=== PATIENT | male | born 1945 | race Two or more races ===

== ENCOUNTER 2017-02-18 02:14 | Inpatient (IN) | payer MEDICARE, OTHER ==
[~2017-02-18] VITALS: Ht 162.6 cm; Wt 51.3 kg
[2017-02-18] MEDS ORDERED: diphenhydrAMINE 50 MG/1 ML VIAL IM ONE (02:30)
[2017-02-18] MEDS ORDERED: LORAZEPAM 2 MG/1 ML VIAL IM ONE (02:30)
[2017-02-18] MEDS ORDERED: HALOPERIDOL LACTATE 5 MG/1 ML VIAL IM ONE (02:30)
[2017-02-18] MEDS ORDERED: diphenhydrAMINE 50 MG/1 ML VIAL ONE (02:40)
--- NOTE | 2017-02-18 02:40 | NUR ---
Patient BIB private ambulance for Medical Clearance and GPS admission. Patient presents with 5150 hold for GD. Per hold, patient has been screaming frequently at staff, refusing medications, responding to internal stimuli, and has been decompensating over the recent weeks. Patient arrives A/O x1, argumentative and agitated, yelling obsceneties at staff and ERMD. To room 3A, orders received, ERMD performed MSE.
[2017-02-18] MEDS ORDERED: HALOPERIDOL LACTATE 5 MG/1 ML VIAL ONE (02:41)
[2017-02-18] MEDS ORDERED: LORAZEPAM 2 MG/1 ML VIAL ONE (02:41)
[2017-02-18] MEDS ORDERED: MULT1TAB73 PO (02:50)
[2017-02-18] MEDS ORDERED: LORAZEPAM 1 MG TABLET PO (02:50)
[2017-02-18] MEDS ORDERED: ACET-2154 PO (02:50)
[2017-02-18] MEDS ORDERED: FUROSEMIDE 20 MG TABLET PO (02:50)
[2017-02-18] MEDS ORDERED: TEMA15CA5 PO (02:50)
[2017-02-18] MEDS ORDERED: TOUJEO SOLOSTAR 300 UNITS/ML INJ (02:50)
[2017-02-18] MEDS ORDERED: IBUP-1958 PO (02:50)
[2017-02-18] MEDS ORDERED: LOPE2TAB25 PO (02:50)
[2017-02-18] MEDS ORDERED: MAGN400T6 PO (02:50)
[2017-02-18] MEDS ORDERED: ACETAMINOPHEN COD (02:50)
[2017-02-18] MEDS ORDERED: DIPH50CA37 PO (02:50)
[2017-02-18] MEDS ORDERED: SODI1TAB3 PO (02:50)
[2017-02-18] MEDS ORDERED: GLUCAGON 1 MG IM (02:50)
[2017-02-18] MEDS ORDERED: RISP0.253 PO (02:55)
[2017-02-18] MEDS ORDERED: ACETAMINOPHEN COD PO (02:55)
[2017-02-18] MEDS ORDERED: ONDA4TAB5 PO (02:55)
[2017-02-18 03:07] LABS: CARBON DIOXIDE 29 mmol/L (21-32); CHLORIDE 104 mmol/L (98-107); CREATININE 1.2 mg/dL (0.6-1.3); GLUCOSE 138 mg/dL (74-106); POTASSIUM 3.8 mmol/L (3.5-5.1); UREA NITROGEN, BLOOD 33 mg/dL (7-18)
[2017-02-18 03:15] LABS: ALANINE AMINOTRANSFERASE 27 U/L (16-63); ALKALINE PHOSPHATASE 90 U/L (50-136); BILIRUBIN,DIRECT 0.3 mg/dL (0.0-0.2); BILIRUBIN,TOTAL 1.4 mg/dL (0.2-1.0); TOTAL PROTEIN, SERUM 7.8 g/dL (6.4-8.2)
[2017-02-18 03:16] LABS: BASOPHILS % (AUTO) 0.3 % (0.0-2.0); EOSINOPHILS # (AUTO) 0.3 K/uL (0.0-0.7); EOSINOPHILS % (AUTO) 2.2 % (0.0-7.0); HEMATOCRIT 34.5 % (40-50); HEMOGLOBIN 11.4 G/DL (14.0-18.0); LYMPHOCYTES # (AUTO) 2.3 K/UL (0.8-4.8); LYMPHOCYTES % (AUTO) 19.6 % (20.5-51.5); MEAN CORPUSCULAR HEMOGLOBIN 32.7 UUG (27.0-31.0); MEAN CORPUSCULAR HGB CONC 33 g/dL (32.0-37.0); MEAN CORPUSCULAR VOLUME 98.4 FL (82.0-92.0); MONOCYTES # (AUTO) 1.1 K/UL (0.1-1.30); MONOCYTES % (AUTO) 9.7 % (0.0-11.0); NEUTROPHILS # (AUTO) 7.9 K/UL (1.8-8.9); NEUTROPHILS % (AUTO) 68.2 % (38.5-71.5); PLATELET COUNT (AUTO) 217 K/UL (150-450); WHITE BLOOD COUNT (AUTO) 11.6 K/UL (4.0-11.2)
[2017-02-18 03:19] LABS: ETHANOL < 3 MG/DL (0-0)
[2017-02-18 03:20] LABS: THYROID STIMULATING HORMONE 0.614 mIU/mL (0.358-3.740)
[2017-02-18 03:22] LABS: ACETAMINOPHEN < 2.0 ug/mL (10-30)
[2017-02-18 03:45] VITALS: BP 119/64
[2017-02-18 03:47] LABS: ASPARTATE AMINOTRANSFERASE 47 U/L (15-37)
[2017-02-18 03:54] LABS: *BILIRUBIN,URIN NEGATIVE (NEGATIVE); *BLOOD, URINE Trace-intact (NEGATIVE); *COLOR,URINE YELLOW (YELLOW); *KETONES,URINE TRACE (NEGATIVE); *PROTEIN,URINE 1+ (NEGATIVE); LEUKOCYTE ESTERASE ,URINE NEGATIVE (NEGATIVE); NITRITE, URINE NEGATIVE (NEGATIVE); UGLUCOSE NEGATIVE (NEGATIVE)
--- NOTE | 2017-02-18 03:59 | NUR ---
Pt. admitted to GPS, under care of Dr. Wong Belongs List completed
[2017-02-18] MEDS ORDERED: MAG HYDROX/AL HYDROX/SIMETH 30 ML LIQUID UDC PO PRN (04:00)
[2017-02-18] MEDS ORDERED: MAGNESIUM HYDROXIDE 30 ML LIQUID UDC PO PRN (04:00)
[2017-02-18 04:03] LABS: *CLARITY,URINE HAZY (CLEAR)
[2017-02-18 04:05] LABS: BACTERIA,URINE FEW /HPF (NONE SEEN); MUCUS,URINE FEW /LPF (0-FEW); RBC,URINE 0-3 /HPF (0-3); SQUAMOUS EPITHELIAL CELL,UR FEW /HPF (NONE SEEN); YEAST,URINE MODERATE /HPF (NONE SEEN)
[2017-02-18 04:06] LABS: *AMPHETAMINE, URINE NEGATIVE (NEGATIVE); *BARBITURATE, URINE NEGATIVE (NEGATIVE); *CANNABINOID, URINE NEGATIVE (NEGATIVE); *COCCAINE, URINE POSITIVE (NEGATIVE); *OPIATE, URINE POSITIVE (NEGATIVE); *PHENCYCLIDINE SCREEN,URINE NEGATIVE (NEGATIVE)
--- NOTE | 2017-02-18 04:46 | NUR ---
received to care from the emergency room,a resident of [facility], who had been decompensating over the past few weeks, screaming frequently at nursing staff, refusing care and medicines, responding to internal stimuli, and went awol and stayed out all night, upon arrival, he had 2 crack pipes, a small baggie of white powder, and the urine drug screen, done in the ER, showed positive for cocaine and opiates. upon arrival in the ER, he was aggressive, yelling and hostile. he was given an IM injrection of haldol/ativan/benadryl. upon arrival on the unit, he was asleep. and was unable to provide any information. as of 445, he remains asleep. no distress noted. bed alarm armed, for safety. no distress noted. will continue to monitor closely.
[2017-02-18] MEDS: NICOTINE 21 MG/24HR PATCH TD SCH (09:28)
--- NOTE | 2017-02-18 13:24 | NUR ---
GPS/RN- CONTRABAND. received report from night baker , patient found with contraband, 2 crack pipes found and a small plastic bag with small amount of white powder substance, possible cocaine, patient tested positive for cocaine in Drug Screen. crack pipes turned into Nabeel jimenez at this time. Other contraband (white powder substance) turned into Pharmacy. Addendum: 02/18/17 at 1401 by TOMÁS DORSEY RN turned into Pharmacy, Darby, Pharmacist.
--- NOTE | 2017-02-18 14:00 | NUR ---
GPS/RN- Dr Brody Schwartz notified of labs and UA results. no new orders at this time. continue to monitor patient.
[2017-02-18 16:00] VITALS: BP 99/45
[2017-02-18 20:16] VITALS: BP 94/48
[2017-02-18] MEDS: BLOOD SUGAR DIAGNOSTIC 1 EACH STRIP VI SCH (21:14)
[2017-02-18] MEDS ORDERED: DEXTROSE 50% 50 ML DISP.SYRIN IV PRN (21:30)
[2017-02-18] MEDS ORDERED: ACETAMINOPHEN 325 MG TABLET PO SCH (21:30)
--- NOTE | 2017-02-18 22:00 | NUR ---
received to care, lying in bed, asleep. b/p was initially 94/48, hr 70. he was given some fluids, a sandwich, and was assisted to the bathroom. he remains occasionally labile, and verbally abusive, but easy to redirect. compliant with accucheck, and insulin coverage. as of 2199, his b/p is 102/61, hr 81. currently asleep. no distress noted. will continue to monitor closely.
[2017-02-18] MEDS ORDERED: INSULIN DETEMIR 300 UNIT/3 ML CARTRIDGE SQ ONE (22:04)
[2017-02-18] MEDS ORDERED: INSULIN REGULAR, HUMAN 300 UNIT/3 ML VIAL ONE (22:04)
[2017-02-18] MEDS: INSULIN DETEMIR 300 UNIT/3 ML CARTRIDGE SQ SCH (22:10)
[2017-02-18] MEDS: INSULIN REGULAR, HUMAN 300 UNIT/3 ML VIAL SQ PRN (22:17)
[2017-02-19] MEDS: BLOOD SUGAR DIAGNOSTIC 1 EACH STRIP VI SCH ×5 (06:44→20:08)
[2017-02-19] MEDS ORDERED: BLOOD SUGAR DIAGNOSTIC 1 EACH STRIP VI SCH (07:30)
[2017-02-19 08:20] VITALS: BP 97/50
[2017-02-19] MEDS: BENZTROPINE MESYLATE 0.5 MG TABLET PO SCH ×3 (08:40→16:16)
[2017-02-19] MEDS: MULTIVITAMINS,THERAPEUTIC TABLET PO SCH (08:40)
[2017-02-19] MEDS: NICOTINE 21 MG/24HR PATCH TD SCH (08:40)
[2017-02-19] MEDS: HALOPERIDOL 2 MG TABLET PO SCH ×3 (08:40→16:16)
--- NOTE | 2017-02-19 13:25 | NUR ---
DR PALMA HERE TO SEE PATIENT AND HE IS AWARE OF PATIENTS BLOOD SUGAR BEING LOW THIS AM AND BLOOD PRESSURE BEING LOW NO NEW ORDERS AT THIS TIME.
--- NOTE | 2017-02-19 15:44 | NUR ---
Initial discharge instructions: Pt resides at [facility] [[facility] [place],[address];[phone] ].Per pt's daughter,she would like the pt to return there upon discharge.SW will speak with pt,family,and MD regarding appropriate discharge plans.SW will form a safe and proper discharge.
[2017-02-19 16:00] VITALS: BP 94/52
--- NOTE | 2017-02-19 17:49 | NUR ---
WAS UP ON THE W/CHAIR AND TAKEN TO THE DAY ROOM BUT HE WAS THERE FOR FEW MINUTES AND HE CAME BACK TO HIS ROOM AND WENT BACK INTO BED.PATIENT GETS EASILY IRRITATED AND USES BAD LANGUAGE AND CURSES AT THE NURSES.
--- NOTE | 2017-02-19 18:02 | NUR ---
PATIENT SEEN AND EXAMINED BY DR FOX CHAPPELL AWARE OF PATIENTS BEHAVIOR WITH NEW ORDERS AND NOTED
[2017-02-19 20:10] VITALS: BP 98/56
[2017-02-19] MEDS: INSULIN DETEMIR 300 UNIT/3 ML CARTRIDGE SQ SCH (20:13)
[2017-02-20] MEDS: TEMAZEPAM 7.5 MG CAPSULE PO PRN ×2 (00:58→21:01)
[2017-02-20] MEDS: BLOOD SUGAR DIAGNOSTIC 1 EACH STRIP VI SCH ×4 (06:32→20:08)
[2017-02-20 07:30] VITALS: BP 117/50
[2017-02-20] MEDS: HALOPERIDOL 5 MG TABLET PO SCH ×3 (10:18→17:27)
[2017-02-20] MEDS: BENZTROPINE MESYLATE 1 MG TABLET PO SCH ×3 (10:19→17:27)
[2017-02-20] MEDS: MULTIVITAMINS,THERAPEUTIC TABLET PO SCH (10:19)
[2017-02-20] MEDS: NICOTINE 21 MG/24HR PATCH TD SCH (10:19)
[2017-02-20] MEDS: INSULIN REGULAR, HUMAN 300 UNIT/3 ML VIAL SQ PRN (14:14)
[2017-02-20 15:00] VITALS: BP 101/59
[2017-02-20] MEDS ORDERED: GUAIFENESIN/DEXTROMETHORPHAN 5 ML UDC PO PRN (18:30)
[2017-02-20] MEDS: INSULIN DETEMIR 300 UNIT/3 ML CARTRIDGE SQ SCH (20:11)
[2017-02-20] MEDS: GUAIFENESIN SUGAR FREE 100 MG/5 ML UDC PO PRN (20:52)
[2017-02-20 20:54] VITALS: BP 132/73
[2017-02-20] MEDS: ACETAMINOPHEN 325 MG TABLET PO PRN (22:25)
[2017-02-21] MEDS: GUAIFENESIN SUGAR FREE 100 MG/5 ML UDC PO PRN ×2 (02:52→17:14)
[2017-02-21] MEDS: BLOOD SUGAR DIAGNOSTIC 1 EACH STRIP VI SCH ×4 (06:40→20:23)
[2017-02-21 07:30] VITALS: BP 123/70
[2017-02-21] MEDS: MULTIVITAMINS,THERAPEUTIC TABLET PO SCH (08:58)
[2017-02-21] MEDS: NICOTINE 21 MG/24HR PATCH TD SCH (08:58)
[2017-02-21] MEDS: HALOPERIDOL 5 MG TABLET PO SCH ×3 (08:58→17:10)
[2017-02-21] MEDS: BENZTROPINE MESYLATE 1 MG TABLET PO SCH ×3 (08:58→17:07)
--- NOTE | 2017-02-21 09:17 | NUR ---
DONTEG PT BS 104. PT TOOK ALL AM MEDS, RESTING IN BED.
--- NOTE | 2017-02-21 11:12 | NUR ---
NSG BS 111, PT RESTING IN BED, NO DISTRESS.
--- NOTE | 2017-02-21 13:06 | NUR ---
GAVE PT MOM C/O STOMACH ACHE.
[2017-02-21] MEDS: INSULIN REGULAR, HUMAN 300 UNIT/3 ML VIAL SQ PRN (16:49)
[2017-02-21 17:10] VITALS: BP 106/57
[2017-02-21] MEDS: ACETAMINOPHEN 325 MG TABLET PO PRN (19:59)
[2017-02-21] MEDS: INSULIN DETEMIR 300 UNIT/3 ML CARTRIDGE SQ SCH (20:23)
[2017-02-21] MEDS: TEMAZEPAM 7.5 MG CAPSULE PO PRN (20:32)
[2017-02-21 22:48] VITALS: BP 110/73
[2017-02-22] MEDS: BLOOD SUGAR DIAGNOSTIC 1 EACH STRIP VI SCH ×4 (06:31→20:24)
[2017-02-22] MEDS: GUAIFENESIN SUGAR FREE 100 MG/5 ML UDC PO PRN ×3 (06:46→19:53)
[2017-02-22 07:30] VITALS: BP 114/67
[2017-02-22] MEDS: MULTIVITAMINS,THERAPEUTIC TABLET PO SCH (08:44)
[2017-02-22] MEDS: HALOPERIDOL 5 MG TABLET PO SCH ×3 (08:44→18:12)
[2017-02-22] MEDS: NICOTINE 21 MG/24HR PATCH TD SCH (08:44)
[2017-02-22] MEDS: BENZTROPINE MESYLATE 1 MG TABLET PO SCH ×3 (08:44→18:12)
[2017-02-22 09:41] LABS: IRON, SERUM 45 ug/dL (50-175)
[2017-02-22 16:00] VITALS: BP 103/55
[2017-02-22] MEDS: INSULIN DETEMIR 300 UNIT/3 ML CARTRIDGE SQ SCH (20:24)
[2017-02-22 20:25] VITALS: BP 106/72
[2017-02-22] MEDS: ACETAMINOPHEN 325 MG TABLET PO PRN (20:39)
[2017-02-22] MEDS: TEMAZEPAM 7.5 MG CAPSULE PO PRN (20:39)
[2017-02-23] MEDS: BLOOD SUGAR DIAGNOSTIC 1 EACH STRIP VI SCH ×4 (06:34→20:33)
[2017-02-23] MEDS: ACETAMINOPHEN 325 MG TABLET PO PRN ×2 (06:34→20:23)
[2017-02-23 07:30] VITALS: BP 111/50
[2017-02-23] MEDS: HALOPERIDOL 5 MG TABLET PO SCH ×3 (08:32→16:38)
[2017-02-23] MEDS: GUAIFENESIN SUGAR FREE 100 MG/5 ML UDC PO PRN (08:32)
[2017-02-23] MEDS: MULTIVITAMINS,THERAPEUTIC TABLET PO SCH (08:32)
[2017-02-23] MEDS: NICOTINE 21 MG/24HR PATCH TD SCH (08:32)
[2017-02-23] MEDS: BENZTROPINE MESYLATE 1 MG TABLET PO SCH ×3 (08:32→16:38)
[2017-02-23 16:09] VITALS: BP 115/66
[2017-02-23] MEDS: INSULIN DETEMIR 300 UNIT/3 ML CARTRIDGE SQ SCH (20:21)
[2017-02-23] MEDS: INSULIN REGULAR, HUMAN 300 UNIT/3 ML VIAL SQ PRN (20:22)
[2017-02-23 21:01] VITALS: BP 139/75
[2017-02-23] MEDS: TEMAZEPAM 7.5 MG CAPSULE PO PRN (21:24)
--- NOTE | 2017-02-23 22:00 | NUR ---
received to care, up in wheelchair, watching tv, pleasant upon approach. interacts minimally with peers. able to make his needs known, to staff. compliant with medications, including accu check, and insulin. PRN restoril was given at 2123, and, as of 2199, he remains awake, watching tv. no distress noted. will continue to monitor closely.
--- NOTE | 2017-02-23 23:30 | NUR ---
appears to be asleep. no distress noted.
[2017-02-24] MEDS: GUAIFENESIN SUGAR FREE 100 MG/5 ML UDC PO PRN ×3 (01:58→10:32)
[2017-02-24] MEDS: BLOOD SUGAR DIAGNOSTIC 1 EACH STRIP VI SCH ×4 (06:00→20:33)
[2017-02-24] MEDS: LORAZEPAM 1 MG TABLET PO PRN (06:16)
--- NOTE | 2017-02-24 06:16 | NUR ---
slept 5 hours, total. is now awake. is labile, and verbally abusive to staff assisting her. PRN ativan given at this time. will continue to monitor.
--- NOTE | 2017-02-24 06:53 | NUR ---
appears calmer, now. currently watching tv. no distress noted.
[2017-02-24 07:30] VITALS: BP 123/71
[2017-02-24] MEDS: DIVALPROEX 250 MG TABLET.DR PO SCH ×3 (09:16→16:45)
[2017-02-24] MEDS: BENZTROPINE MESYLATE 1 MG TABLET PO SCH ×3 (09:16→16:45)
[2017-02-24] MEDS: NICOTINE 21 MG/24HR PATCH TD SCH (09:17)
[2017-02-24] MEDS: HALOPERIDOL 5 MG TABLET PO SCH ×3 (09:17→16:45)
[2017-02-24] MEDS: MULTIVITAMINS,THERAPEUTIC TABLET PO SCH (09:17)
[2017-02-24 17:17] VITALS: BP 103/71
[2017-02-24 20:00] VITALS: BP 117/80
[2017-02-24] MEDS: INSULIN DETEMIR 300 UNIT/3 ML CARTRIDGE SQ SCH (20:37)
[2017-02-24] MEDS: INSULIN REGULAR, HUMAN 300 UNIT/3 ML VIAL SQ PRN (20:40)
[2017-02-24] MEDS: TEMAZEPAM 7.5 MG CAPSULE PO PRN (21:31)
--- NOTE | 2017-02-24 22:00 | NUR ---
received to care, up in wheelchair, pleasant upon approach. no agitation noted. interacts minimally with peers, but is able to make his needs known, to staff. compliant with medications, including accu check, and insulin. PRN restoril was given at 2129 for insomnia, and, as of 2199, he appears to be asleep. no distress noted. will continue to monitor closely.
[2017-02-25] MEDS: LORAZEPAM 1 MG TABLET PO PRN (00:29)
--- NOTE | 2017-02-25 00:29 | NUR ---
is now awake, and restless, pacing the hallway. PRN ativan was given, and he was directed back to bed. will continue to monitor.
[2017-02-25] MEDS: GUAIFENESIN SUGAR FREE 100 MG/5 ML UDC PO PRN ×2 (00:34→11:27)
--- NOTE | 2017-02-25 01:00 | NUR ---
appears to be asleep. no distress noted.
--- NOTE | 2017-02-25 06:00 | NUR ---
slept 5.0 hours, total. assisted with AM care, and shower. no distress noted.
[2017-02-25] MEDS: BLOOD SUGAR DIAGNOSTIC 1 EACH STRIP VI SCH ×4 (06:24→20:11)
[2017-02-25 08:00] VITALS: BP 118/58
[2017-02-25] MEDS: HALOPERIDOL 5 MG TABLET PO SCH ×3 (08:40→16:51)
[2017-02-25] MEDS: DIVALPROEX 250 MG TABLET.DR PO SCH ×3 (08:40→16:51)
[2017-02-25] MEDS: NICOTINE 21 MG/24HR PATCH TD SCH (08:40)
[2017-02-25] MEDS: BENZTROPINE MESYLATE 1 MG TABLET PO SCH ×3 (08:40→16:51)
[2017-02-25] MEDS: MULTIVITAMINS,THERAPEUTIC TABLET PO SCH (08:40)
[2017-02-25 16:00] VITALS: BP 96/60
[2017-02-25] MEDS: ACETAMINOPHEN 325 MG TABLET PO PRN (20:03)
[2017-02-25] MEDS: INSULIN DETEMIR 300 UNIT/3 ML CARTRIDGE SQ SCH (20:17)
[2017-02-25 20:26] VITALS: BP 127/66
[2017-02-25] MEDS: TEMAZEPAM 7.5 MG CAPSULE PO PRN (21:09)
[2017-02-25] MEDS: NEOMY/BACITRAC/POLYMI OINT 28.35 GM TUBE TOP SCH (21:44)
--- NOTE | 2017-02-25 22:00 | NUR ---
received to care, lying in bed, pleasant upon approach. no agitation noted. compliant with medications, including accu check, and insulin. PRN restoril was given at 2108 for insomnia, and, as of 2199, he remains awake, but calm. curently watching tv, and eating a snack. no distress noted. will continue to monitor closely.
--- NOTE | 2017-02-25 23:00 | NUR ---
appears to be asleep. no distress noted. will continue to monitor closely.
[2017-02-26] MEDS: LORAZEPAM 1 MG TABLET PO PRN (01:57)
--- NOTE | 2017-02-26 01:57 | NUR ---
PRN ativan given for restlessness.
--- NOTE | 2017-02-26 03:41 | NUR ---
remains awake, and restless. becomes hostile, and verbally abusive, when limits are set. refuses to stay in bed. currently up in wheelchair,in hallway. will continue to monitor closely.
--- NOTE | 2017-02-26 05:00 | NUR ---
appears to be asleep. no distress noted.
--- NOTE | 2017-02-26 06:00 | NUR ---
slept 5.0 hours, total.
[2017-02-26] MEDS: BLOOD SUGAR DIAGNOSTIC 1 EACH STRIP VI SCH ×4 (06:25→20:02)
[2017-02-26 07:30] VITALS: BP 111/64
[2017-02-26] MEDS: DIVALPROEX 250 MG TABLET.DR PO SCH ×3 (09:24→17:49)
[2017-02-26] MEDS: BENZTROPINE MESYLATE 1 MG TABLET PO SCH ×3 (09:24→17:49)
[2017-02-26] MEDS: MULTIVITAMINS,THERAPEUTIC TABLET PO SCH (09:25)
[2017-02-26] MEDS: NICOTINE 21 MG/24HR PATCH TD SCH (09:25)
[2017-02-26] MEDS: HALOPERIDOL 5 MG TABLET PO SCH ×3 (09:29→17:49)
[2017-02-26] MEDS: NEOMY/BACITRAC/POLYMI OINT 28.35 GM TUBE TOP SCH ×2 (09:29→20:04)
[2017-02-26 15:00] VITALS: BP 107/72
[2017-02-26] MEDS: INSULIN DETEMIR 300 UNIT/3 ML CARTRIDGE SQ SCH (20:07)
[2017-02-26] MEDS: ACETAMINOPHEN 325 MG TABLET PO PRN (20:11)
--- NOTE | 2017-02-26 20:15 | NUR ---
GPS: PATIENT C/O GEN: PAIN. TYLENOL 650 MG PO GIVEN.
[2017-02-26 20:46] VITALS: BP 109/69
--- NOTE | 2017-02-26 21:16 | NUR ---
GPS: PATIENT STATED I AM FEELING BETTER NOW. PRN FOR PAIN EFFECTIVE.
[2017-02-27] MEDS: BLOOD SUGAR DIAGNOSTIC 1 EACH STRIP VI SCH ×4 (06:34→20:34)
--- NOTE | 2017-02-27 06:35 | NUR ---
GPS: REMAIN CALM AND COOPERATIVE WITH MEDS AND CARE. SLEPT 2 HRS THROUGH THE NIGHT.OFFERED SLEEPING MEDS PATIENT STATED I DON'T NEED IT. CONTINUE PLAN OF CARE.
[2017-02-27 07:30] VITALS: BP 110/60
[2017-02-27] MEDS ORDERED: DIVALPROEX 250 MG TABLET.DR PO SCH (09:00)
[2017-02-27] MEDS: MULTIVITAMINS,THERAPEUTIC TABLET PO SCH (09:24)
[2017-02-27] MEDS: DIVALPROEX 250 MG TABLET.DR PO SCH ×2 (09:24→13:55)
[2017-02-27] MEDS: NICOTINE 21 MG/24HR PATCH TD SCH (09:24)
[2017-02-27] MEDS: BENZTROPINE MESYLATE 1 MG TABLET PO SCH ×3 (09:24→20:39)
[2017-02-27] MEDS: HALOPERIDOL 5 MG TABLET PO SCH ×3 (09:24→20:39)
[2017-02-27] MEDS: NEOMY/BACITRAC/POLYMI OINT 28.35 GM TUBE TOP SCH ×2 (11:09→21:27)
--- NOTE | 2017-02-27 14:42 | NUR ---
WOUND CARE CONSULT: PT PRESENTS WITH LEFT GREAT TO [facility]LCER, PRESENT ON ADMISSION. RECOMMEND DPM CONSULT. PT IS AMBULATORY AND CONTINENT. RECOMMENDATIONS MADE FOR WOUND CARE. DISCUSSED WITH NURSING STAFF. WILL SEE PRN. CHAPPELL IN AGREEMENT WITH PLAN OF CARE. Addendum: 02/27/17 at 1443 by ROSALVA COUGHLIN RN Amended: Links added.
[2017-02-27 15:00] VITALS: BP 119/73
[2017-02-27 20:27] VITALS: BP 117/68
[2017-02-27] MEDS: ACETAMINOPHEN 325 MG TABLET PO PRN (20:34)
[2017-02-27] MEDS: DIVALPROEX 500 MG TABLET.DR PO SCH (20:39)
[2017-02-27] MEDS: INSULIN DETEMIR 300 UNIT/3 ML CARTRIDGE SQ SCH (20:42)
[2017-02-27] MEDS: INSULIN REGULAR, HUMAN 300 UNIT/3 ML VIAL SQ PRN (20:43)
[2017-02-27] MEDS: GUAIFENESIN SUGAR FREE 100 MG/5 ML UDC PO PRN (21:16)
--- NOTE | 2017-02-28 05:55 | NUR ---
patient noted demanding and cursing at staff. Tylenol 650mg PO PRN was given for leg pain last night at approx 2030. was effective. Patient slept on-and-off through the night; however, he was calm and cooperative.
[2017-02-28] MEDS: BLOOD SUGAR DIAGNOSTIC 1 EACH STRIP VI SCH ×5 (06:51→20:12)
--- NOTE | 2017-02-28 06:52 | NUR ---
Blood glucose AC was 60. 60ml orange juice was given. we will rechecks in 15 min.
[2017-02-28 07:30] VITALS: BP 107/63
[2017-02-28] MEDS: MULTIVITAMINS,THERAPEUTIC TABLET PO SCH (08:17)
[2017-02-28] MEDS: DIVALPROEX 250 MG TABLET.DR PO SCH ×2 (08:17→12:05)
[2017-02-28] MEDS: BENZTROPINE MESYLATE 1 MG TABLET PO SCH ×3 (08:17→20:17)
[2017-02-28] MEDS: HALOPERIDOL 5 MG TABLET PO SCH ×3 (08:18→20:17)
[2017-02-28] MEDS: NEOMY/BACITRAC/POLYMI OINT 28.35 GM TUBE TOP SCH ×2 (08:24→20:26)
[2017-02-28] MEDS: NICOTINE 21 MG/24HR PATCH TD SCH (08:24)
[2017-02-28 16:03] VITALS: BP 107/67
[2017-02-28] MEDS: DIVALPROEX 500 MG TABLET.DR PO SCH (20:17)
[2017-02-28] MEDS: INSULIN REGULAR, HUMAN 300 UNIT/3 ML VIAL SQ PRN (20:18)
[2017-02-28] MEDS: INSULIN DETEMIR 300 UNIT/3 ML CARTRIDGE SQ SCH (20:19)
[2017-02-28 20:25] VITALS: BP 119/67
[2017-02-28] MEDS: TEMAZEPAM 7.5 MG CAPSULE PO PRN (22:14)
[2017-03-01] MEDS: BLOOD SUGAR DIAGNOSTIC 1 EACH STRIP VI SCH ×5 (06:47→20:43)
--- NOTE | 2017-03-01 06:52 | NUR ---
Patient slept for approx 3 hrs through the night. He continue to be demanding labile and easily irritable, continue refusing shower. His blood glucose this morning was 67. 60ml orange juice was given. we will recheck in 15min.
--- NOTE | 2017-03-01 07:23 | NUR ---
Reassess Blood glucose is 108
[2017-03-01 07:30] VITALS: BP 139/84
[2017-03-01] MEDS: HALOPERIDOL 5 MG TABLET PO SCH ×3 (08:13→21:00)
[2017-03-01] MEDS: BENZTROPINE MESYLATE 1 MG TABLET PO SCH ×3 (08:13→21:01)
[2017-03-01] MEDS: MULTIVITAMINS,THERAPEUTIC TABLET PO SCH (08:13)
[2017-03-01] MEDS: DIVALPROEX 250 MG TABLET.DR PO SCH ×2 (08:14→12:01)
[2017-03-01] MEDS: NICOTINE 21 MG/24HR PATCH TD SCH (08:14)
[2017-03-01] MEDS: NEOMY/BACITRAC/POLYMI OINT 28.35 GM TUBE TOP SCH ×2 (08:14→22:19)
[2017-03-01 20:18] VITALS: BP 111/72
[2017-03-01] MEDS: ACETAMINOPHEN 325 MG TABLET PO PRN (21:00)
[2017-03-01] MEDS: DIVALPROEX 500 MG TABLET.DR PO SCH (21:01)
[2017-03-02] MEDS: BLOOD SUGAR DIAGNOSTIC 1 EACH STRIP VI SCH ×4 (06:50→20:37)
[2017-03-02 07:10] LABS: BASOPHILS # (AUTO) 0.1 K/uL (0.0-8.0); EOSINOPHILS # (AUTO) 0.4 K/uL (0.0-0.7); EOSINOPHILS % (AUTO) 5.2 % (0.0-7.0); HEMATOCRIT 34.5 % (40-50); HEMOGLOBIN 11.5 G/DL (14.0-18.0); LYMPHOCYTES # (AUTO) 3.4 K/UL (0.8-4.8); LYMPHOCYTES % (AUTO) 41.2 % (20.5-51.5); MEAN CORPUSCULAR HEMOGLOBIN 32.6 UUG (27.0-31.0); MEAN CORPUSCULAR HGB CONC 33 g/dL (32.0-37.0); MEAN CORPUSCULAR VOLUME 97.7 FL (82.0-92.0); MONOCYTES # (AUTO) 0.4 K/UL (0.1-1.30); MONOCYTES % (AUTO) 4.4 % (0.0-11.0); NEUTROPHILS % (AUTO) 48.2 % (38.5-71.5); RED BLOOD CELL COUNT(AUTO) 3.53 MIL/UL (4.7-6.1)
[2017-03-02 07:25] LABS: PLATELET COUNT (AUTO) 311 K/UL (150-450); WHITE BLOOD COUNT (AUTO) 8.3 K/UL (4.0-11.2)
[2017-03-02 07:30] VITALS: BP 116/67
[2017-03-02 07:35] LABS: CREATININE 0.9 mg/dL (0.6-1.3); MAGNESIUM 2.1 mg/dL (1.8-2.4); PHOSPHOROUS 3.6 mg/dL (2.5-4.9); POTASSIUM 4.3 mmol/L (3.5-5.1)
[2017-03-02] MEDS: MULTIVITAMINS,THERAPEUTIC TABLET PO SCH (08:55)
[2017-03-02] MEDS: HALOPERIDOL 5 MG TABLET PO SCH ×3 (08:55→20:39)
[2017-03-02] MEDS: DIVALPROEX 250 MG TABLET.DR PO SCH ×2 (08:55→13:13)
[2017-03-02] MEDS: BENZTROPINE MESYLATE 1 MG TABLET PO SCH ×3 (08:55→20:38)
[2017-03-02] MEDS: NICOTINE 21 MG/24HR PATCH TD SCH (08:55)
[2017-03-02] MEDS: NEOMY/BACITRAC/POLYMI OINT 28.35 GM TUBE TOP SCH ×2 (08:56→20:57)
[2017-03-02 15:43] VITALS: BP 124/79
[2017-03-02 20:28] VITALS: BP 110/71
[2017-03-02] MEDS: DIVALPROEX 500 MG TABLET.DR PO SCH (20:39)
[2017-03-02] MEDS: TEMAZEPAM 7.5 MG CAPSULE PO PRN (22:03)
[2017-03-03] MEDS: BLOOD SUGAR DIAGNOSTIC 1 EACH STRIP VI SCH ×4 (06:55→20:13)
[2017-03-03 07:30] VITALS: BP 120/67
[2017-03-03] MEDS: DIVALPROEX 250 MG TABLET.DR PO SCH ×2 (08:36→12:57)
[2017-03-03] MEDS: NICOTINE 21 MG/24HR PATCH TD SCH (08:36)
[2017-03-03] MEDS: HALOPERIDOL 5 MG TABLET PO SCH ×3 (08:37→20:14)
[2017-03-03] MEDS: MULTIVITAMINS,THERAPEUTIC TABLET PO SCH (08:37)
[2017-03-03] MEDS: BENZTROPINE MESYLATE 1 MG TABLET PO SCH ×3 (08:37→20:14)
[2017-03-03] MEDS: NEOMY/BACITRAC/POLYMI OINT 28.35 GM TUBE TOP SCH (08:38)
[2017-03-03 16:11] VITALS: BP 97/48
[2017-03-03 20:12] VITALS: BP 122/78
[2017-03-03] MEDS: DIVALPROEX 500 MG TABLET.DR PO SCH (20:13)
[2017-03-03] MEDS ORDERED: TEMAZEPAM 15 MG CAPSULE PO PRN (23:00)
[2017-03-03] MEDS ORDERED: LORAZEPAM 1 MG TABLET PO PRN (23:00)
[2017-03-03] MEDS: ACETAMINOPHEN 325 MG TABLET PO PRN (23:02)
[2017-03-03] MEDS ORDERED: TEMAZEPAM 15 MG CAPSULE ONE (23:12)
[2017-03-04] MEDS: BLOOD SUGAR DIAGNOSTIC 1 EACH STRIP VI SCH ×2 (06:31→11:30)
--- NOTE | 2017-03-04 06:42 | NUR ---
patient slept for approx 5.30 hrs through the night. Temazepam 15mg PO PRN for insomnia was given last night. He continue refusing shower and shave. Multiple redirection were given, yet refused.
[2017-03-04 07:30] VITALS: BP 107/69
[2017-03-04] MEDS: HALOPERIDOL 5 MG TABLET PO SCH ×2 (08:29→12:59)
[2017-03-04] MEDS: DIVALPROEX 250 MG TABLET.DR PO SCH ×2 (08:29→12:59)
[2017-03-04] MEDS: MULTIVITAMINS,THERAPEUTIC TABLET PO SCH (08:29)
[2017-03-04] MEDS: NICOTINE 21 MG/24HR PATCH TD SCH (08:30)
[2017-03-04] MEDS: BENZTROPINE MESYLATE 1 MG TABLET PO SCH ×2 (08:30→12:59)
--- NOTE | 2017-03-04 10:48 | NUR ---
DC Note: Patient will be discharged to [facility] [[address] [place] [address]; [phone]] via ambulance at 2:00 pm. Please schedule an ambulance for the patient. Spoke with Juan Daniel at the facility who stated they would accept the patient today. Patient is aware and agreeable with discharge plans. Spoke with patient's daughter, Izzy Scott [phone] who is aware and agreeable with discharge plans. Patient will follow-up with (Psychiatrist) and (Ranch Supervisor) at the facility. Patient was provided with a brief substance abuse intervention and referred to [facility] , [facility] , and [facility] . For smoking cessation, patient was referred to [employer] 800-LUNGUSA and [employer] [phone].
--- NOTE | 2017-03-04 14:50 | NUR ---
PT WAS DISCHARGED TO [facility] VIA AMBULANCE. PT LEFT WITH ALL BELONGINGS, TMS, AND EXITCARE. PT WAS IN STABLE CONDITION, DENIES SUICIDAL AND HOMICIDAL IDEATION, NO AGGRESSION AT THIS TIME.
== END 2017-03-04 14:50 | DRG 885 ==
LOC: ER 02:19 → GPS 03:40
PROVIDERS: ADMIT Psychiatry & Neurology Psychiatry; ATTEND Psychiatry & Neurology Psychiatry
DX: F39 Unspecified mood [affective] disorder (principal); E11.65 Type 2 diabetes mellitus with hyperglycemia; F29 Unspecified psychosis not due to a substance or known physiological condition; M19.90 Unspecified osteoarthritis, unspecified site; D53.9 Nutritional anemia, unspecified; M81.0 Age-related osteoporosis without current pathological fracture; R29.6 Repeated falls; Z79.899 Other long term (current) drug therapy; Z87.440 Personal history of urinary (tract) infections; R82.5 Elevated urine levels of drugs, medicaments and biological substances
CPT/HCPCS: 36415; 70030-TC; 70450; 71010; 80164; 80307; 83550; 83605; 83735; 84100; 84443; 85025; 85730; 87040; 87077; 87086; 93005; A4663; C1758; G0480; G0480-TC; J1200; J1630; J1815; J2060; J3490